=== PATIENT | male | born 1975 ===

== ENCOUNTER 2021-07-31 06:00 | Day surgery (SDC) | payer OTHER ==
[2021-07-31] MEDS ORDERED: POLY119PG PO (15:57)
[2021-07-31] MEDS ORDERED: NEURONTIN600 M1 PO (15:57)
[2021-07-31] MEDS ORDERED: PERCOCET 5-3251 EACH PO (15:57)
== END 2021-07-31 18:20 | disposition home or self-care (01) ==
LOC: CIR.AMB 06:00
PROVIDERS: ATTEND Surgery
DX: K42.0 Umbilical hernia with obstruction, without gangrene (principal)